=== PATIENT | female | born 1980 | race Two or more races ===

== ENCOUNTER → 2021-11-24 12:52 | Outpatient (BNVA) | payer OTHER, SELFPAY | PROVIDERS: Visit Provider Physician Assistant Surgical | DX: E66.01 Morbid (severe) obesity due to excess calories (principal); Z68.41 Body mass index [BMI] 40.0-44.9, adult | CPT/HCPCS: 99202 ==

== ENCOUNTER → 2021-12-08 08:34 | Outpatient (REF) | payer OTHER, SELFPAY ==
--- NOTE | ~2021-12-08 | XR_ITS ---
EXAMINATION: XR CHEST CLINICAL INFORMATION: Morbid to severe obesity due to excess calories COMPARISON: None TECHNIQUE: 2 views of the chest were obtained. FINDINGS: No significant abnormality is noted involving the heart, lungs, mediastinum, bony thorax or soft tissues. XR/XR chest 2V IMPRESSION: Unremarkable chest examination.
--- NOTE | 2021-12-08 08:59 | ECG_ITS ---
Test Reason : MORBID OBESITY Blood Pressure : / mmHG Vent. Rate : 057 BPM Atrial Rate : 057 BPM P-R Int : 166 ms QRS Dur : 088 ms QT Int : 424 ms P-R-T Axes : 045 044 030 degrees QTc Int : 412 ms Sinus bradycardia Low voltage QRS Borderline ECG No previous ECGs available Referred By: Kaushal Montaño Electronically Signed By:FYAE HERMAN
[2021-12-08 09:00] LABS: MANUAL DIFF FLAG NO
[2021-12-08 09:30] LABS: Basophils Percent Auto 0.6 % (0-2); Eosinophils Absolute Auto 0.1 X10*3/uL (0.0-0.4); Eosinophils Percent Auto 1.8 % (0-4); Hematocrit 36.5 % (37.0-47.0); Hemoglobin 12.3 g/dl (12.0-16.0); Imm Gran Abs Auto 0.01 X10*3/uL (0.00-0.03); Imm Gran Pct Auto 0.2 % (0.0-0.4); Lymphocytes Absolute Auto 2.5 X10*3/uL (1.2-4.9); Lymphocytes Percent Auto 49.2 % (20-40); Mean Corpuscular HGB Conc 33.7 g/dl (31.0-35.0); Mean Corpuscular Hemoglobin 30.5 pg (27.0-33.0); Mean Corpuscular Volume 90.6 fL (80.0-98.0); Mean Platelet Volume 8.9 fL (9.4-12.3); Monocytes Absolute Auto 0.3 X10*3/uL (0.1-1.2); Monocytes Percent Auto 5.9 % (2-11); Neutrophils Absolute Auto 2.2 x10*3/uL (2.0-8.3); Neutrophils Percent Auto 42.3 % (45-73); Platelet Count 233 X10*3/uL (160-400); Red Blood Count 4.03 X10*6/uL (4.20-5.50); White Blood Count 5.1 X10*3/uL (4.8-10.8)
[2021-12-08 10:15] LABS: Alanine Aminotransferase 48 U/L (0-31); Albumin Level 4.2 g/dL (3.5-5.0); Alkaline Phosphatase 67 U/L (39-117); Anion Gap 13 (12-20); Aspartate Amino Transferase 30 U/L (5-31); Bilirubin Total 0.3 mg/dL (0.0-1.0); Blood Urea Nitrogen 15 mg/dL (9-16); C Reactive Protein 0.31 mg/dL (< or = 0.50); Carbon Dioxide 26 mmol/L (22-29); Chloride 103 mmol/L (96-108); Cholesterol 153 mg/dL; Estimated Glomerular Filt Rate > 60; Glucose Random 88 mg/dL (60-115); HDL Cholesterol 49 mg/dL; Iron 84 mcg/dL (30-160); LDL Cholesterol Calculated 84 mg/dl; Percent Iron Saturation 24 % (15-50); Potassium 4.6 mmol/L (3.3-5.1); Sodium 137 mmol/L (135-145); Total Iron Binding Capacity 353 mcg/dL (228-428); Total Protein 7.3 g/dL (6.5-8.0); Triglycerides 102 mg/dL; Unsaturated Iron Binding 269 ug/dL
[2021-12-08 10:43] LABS: Estimated Average Glucose 97 mg/dL
[2021-12-08 10:52] LABS: Ferritin 53 ng/mL (10-250); Vitamin D 25-OH Total 47.2 ng/mL (>30)
[2021-12-08 11:02] LABS: Folate 16.1 ng/mL (> or = 4.0); Vitamin B12 319 pg/mL (200-900)
[2021-12-08 11:23] LABS: Insulin 27 uU/mL (2-29)
[2021-12-09 13:22] LABS: Calcium (PTHI) 9.1 mg/dL (8.6-10.2); PTHI 50 pg/mL (16-77)
[2021-12-09 15:10] LABS: H Pylori Breath Test Negative (Negative)
[2021-12-12 06:06] LABS: Vitamin B1 7 nmol/L (8-30)
[2021-12-13 06:11] LABS: Zinc 83 mcg/dL (60-130)
[2021-12-14 18:58] LABS: Vitamin A 39 mcg/dL (38-98)
== END ==
LOC: HO.CARD 08:34
PROVIDERS: Visit Provider Physician Assistant Surgical
DX: E66.01 Morbid (severe) obesity due to excess calories (principal); R00.1 Bradycardia, unspecified; Z11.0 Encounter for screening for intestinal infectious diseases
CPT/HCPCS: 36415; 71046; 80053; 80061; 82306; 82607; 82728; 82746; 83013; 83036; 83525; 83540; 83970; 84425; 84443; 84590; 84630; 85025; 86140; 93005; 99211

== ENCOUNTER → 2022-08-10 13:27 | Outpatient (BNVA) | payer MEDICAID, SELFPAY | PROVIDERS: PCP Nurse Practitioner Family; Visit Provider Physician Assistant Surgical ==

== ENCOUNTER → 2022-08-17 12:58 | Outpatient (BNVA) | payer MEDICAID, SELFPAY | PROVIDERS: PCP Nurse Practitioner Family; Visit Provider Physician Assistant Surgical | DX: E66.01 Morbid (severe) obesity due to excess calories (principal); K21.9 Gastro-esophageal reflux disease without esophagitis; G47.33 Obstructive sleep apnea (adult) (pediatric); E03.9 Hypothyroidism, unspecified; Z68.41 Body mass index [BMI] 40.0-44.9, adult | CPT/HCPCS: 99212 ==

== ENCOUNTER → 2022-08-24 12:13 | Outpatient (BNVA) | payer MEDICAID, SELFPAY | PROVIDERS: PCP Nurse Practitioner Family; Visit Provider Physician Assistant Surgical ==

== ENCOUNTER 2022-09-11 12:31 | Outpatient (AMB) | payer MEDICAID, SELFPAY ==
--- NOTE | 2022-09-11 13:13 | MHC.AMNUTRGE ---
Intake VS Expanded 09/11/22 13:26 Height 5 ft 6 in Weight 236 lb BMI 38.1 Intake Visit Reasons: (OV) Initial Nutrition [facility] Photo Technologist Required: Yes Photo Technologist Name: Marvin Wilkerson Information Interpreted: non-clinical & clinical Allergies No Known Allergies Allergy (Verified 08/24/22 12:20) HPI Nutrition Presentation Details Was in program in Nov 2021 had one appt and left. She managed to lose 10# on her own before coming back Reason for consult elevated BMI Diet Assmnt Details Pure or Quest Protein shake and uses unsweetened almond milk another shake Zone or Atkins protein bar upper sorbian yogurt [place], salad Exercise: just had hand surgery so has stopped, was afraid to . She plans to continue going back to the gym soon SW online classes: completed , scored 20% on nutrition class 4. Educated pt on nutrition label reading today Dietary counseling reduction Diagnosis Nutrition problem #1 overweight/obesity As related to (etiology) #1 excess energy intake and physical inactivity As evidenced by (sign/symptom) #1 high BMI Monitoring/Goals Nutrition problem monitoring total energy intake, level of knowledge/skill, total PRO intake, total CHO intake and weight Outcome progress progressing Learning/Education Readiness to learn excellent Stages of change action Educational materials provided Yes Most Recent Diabetes Results: Cholesterol 153 mg/dL 12/08/21 HDL Cholesterol 49 mg/dL 12/08/21 Triglycerides 102 mg/dL 12/08/21 Creatinine 0.87 mg/dL (0.5-1.4) 12/08/21 Blood Urea Nitrogen 15 mg/dL (9-16) 12/08/21 Sodium 137 mmol/L (135-145) 12/08/21 Potassium 4.6 mmol/L (3.3-5.1) 12/08/21 Chloride 103 mmol/L (96-108) 12/08/21 Carbon Dioxide 26 mmol/L (22-29) 12/08/21 Calcium 9.0 mg/dL (8.4-10.2) 12/08/21 AST 30 U/L (5-31) 12/08/21 ALT 48 U/L (0-31) H 12/08/21 Total Protein 7.3 g/dL (6.5-8.0) 12/08/21 Albumin 4.2 g/dL (3.5-5.0) 12/08/21 [facility] Surgical History Hx of foot surgery Hx of hysterectomy Family History Mother Hypertension Diabetes Father Hypertension High cholesterol Son No problems noted. Son No problems noted. Social History Alcohol intake: never Patient Tobacco Use Status: Never used Tobacco Assessment & Plan Assessment & Plan (1) Morbid obesity: Code(s): E66.01 - Morbid (severe) obesity due to excess calories Patient Instructions: Pt doing really well so far and has lost 24 pounds. Continue high protein nutrition plan. Will resume exercise when able. Will follow up again in 6 weeks for f/u assessment - 10/18 1pm Coding Level of Care Code Nutr Indiv Intake (03902) Diagnoses Morbid obesity E66.01 Time Spent (min) 45 Comment in office
[2022-09-11 13:26] VITALS: BMI 38.1
== END 2022-09-11 13:45 | disposition home or self-care (01) ==
PROVIDERS: PCP Nurse Practitioner Family; Visit Provider Dietitian, Registered
DX: E66.01 Morbid (severe) obesity due to excess calories (principal)

== ENCOUNTER → 2022-09-11 12:31 | Outpatient (BNVA) | payer MEDICAID, SELFPAY | PROVIDERS: PCP Nurse Practitioner Family; Visit Provider Dietitian, Registered | DX: E66.01 Morbid (severe) obesity due to excess calories (principal); Z68.38 Body mass index [BMI] 38.0-38.9, adult; Z71.3 Dietary counseling and surveillance | CPT/HCPCS: 97802 ==

== ENCOUNTER 2022-09-12 07:56 | Outpatient (REF) | payer MEDICAID, SELFPAY ==
--- NOTE | ~2022-09-12 | US_ITS ---
EXAMINATION: US COMPLETE ABDOMEN WITH LIVER ELASTOGRAPHY CLINICAL INFORMATION: Morbid obesity. COMPARISON: None available. TECHNIQUE: Real-time imaging of the abdominal viscera. Noninvasive ultrasound liver fibrosis assessment is performed using Vikas ElastPQ point quantification shear wave elastography (2D-SWE) with a C5-2 MHz transducer. Multiple elastography samples are obtained. FINDINGS: PANCREAS: Normal. The visualized pancreatic head and body are normal in appearance. The remainder of the pancreas is obscured from visualization by the overlying bowel gas. ABDOMINAL AORTA: The proximal, middle, and distal aortic segments are normal in caliber. INFERIOR VENA CAVA: Visualized portions are normal. LIVER: The liver demonstrates normal contour and generally increased echotexture. No focal lesion or intrahepatic biliary duct dilatation. The right lobe measures 21.7 cm in length. The left lobe measures 12.6 cm in length. Portal flow is towards the liver (hepatopetal). Shear wave liver elastography median stiffness is 1.54 m/s (reference: normal median stiffness is 1.3 m/s or less). IQR/median stiffness to assess sampling precision is 0.12 (reference: good quality data set is IQR/median stiffness of 0.15 or less). GALLBLADDER: Normal. The gallbladder is physiologically distended without evidence of stones, sludge, polyps, wall thickening or pericholecystic fluid. COMMON BILE DUCT: Normal in caliber measuring 0.3 cm in diameter. RIGHT KIDNEY: Normal. No hydronephrosis. No renal calculi or focal parenchymal lesions. The kidney measures 10.7 cm in maximum dimension. LEFT KIDNEY: There is a dromedary configuration. No hydronephrosis. No renal calculi or focal parenchymal lesions. The kidney measures 11.5 cm in maximum dimension. SPLEEN: Normal. The spleen measures 12.6 cm in maximum dimension. FREE FLUID: None. US/US abdomen comp w elastography IMPRESSION: 1. There is generalized increase in hepatic echotexture, consistent with fatty infiltration or hepatocellular disease. Please correlate clinically. No focal hepatic mass or intrahepatic biliary dilatation is seen. 2. Liver elastography: In the absence of other known clinical signs, measurements rule out compensated advanced chronic liver disease. If there are known clinical signs, further testing may be needed for confirmation. REFERENCE: Society of Radiologists in Ultrasound Liver Stiffness Thresholds (2020): LIVER STIFFNESS THRESHOLDS: *Liver Stiffness equal or less than 1.3 m/s: High probability of being normal. *Liver Stiffness less than 1.7 m/s: In the absence of other known clinical signs, rules out compensated advanced chronic liver disease. *Liver Stiffness 1.7-2.1 m/s: Suggestive of compensated advanced chronic liver disease but need further test for confirmation. *Liver Stiffness over 2.1 m/s: Rules in compensated advanced chronic liver disease. *Liver Stiffness over 2.4 m/s: Suggestive of clinically significant portal hypertension. QUALITY OF DATA SET: *IQR/Median value equal or less than 0.15 implies a quality data set. *IQR/Median value over 0.15 implies a poor quality data set. SIGNIFICANT CHANGE FROM PRIOR EXAM: Significant change if liver stiffness measurement is 10% or greater from prior exam. OTHER CONSIDERATIONS: The stage of liver fibrosis may be overestimated in the setting of acute hepatitis, liver inflammation, elevated liver function tests, hepatic vascular congestion, obstructive cholestasis, non-fasting state, and infiltrative diseases such as amyloidosis and lymphoma. In some patients with NAFLD, the liver stiffness thresholds for compensated advanced chronic liver disease may be lower. In causes other than viral hepatitis and NAFLD, liver stiffness thresholds are not well established.
== END 2022-09-12 07:57 | disposition home or self-care (01) ==
LOC: HO.US 07:56
PROVIDERS: PCP Nurse Practitioner Family; Visit Provider Physician Assistant Surgical
DX: E66.01 Morbid (severe) obesity due to excess calories (principal)
CPT/HCPCS: 76705; 76981

== ENCOUNTER → 2022-09-18 08:03 | Outpatient (BNVA) | payer MEDICAID, SELFPAY | PROVIDERS: PCP Nurse Practitioner Family; Visit Provider Counselor Mental Health ==

== ENCOUNTER 2022-10-12 08:36 | Outpatient (AMB) | payer OTHER, SELFPAY ==
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
== END 2022-10-12 10:33 | disposition home or self-care (01) ==
PROVIDERS: PCP Nurse Practitioner Family; Visit Provider Counselor Mental Health
DX: F43.29 Adjustment disorder with other symptoms (principal)
CPT/HCPCS: 90837

== ENCOUNTER → 2022-10-12 08:36 | Outpatient (BNVA) | payer MEDICAID, SELFPAY | PROVIDERS: PCP Nurse Practitioner Family; Visit Provider Counselor Mental Health ==

== ENCOUNTER → 2022-10-30 13:57 | Outpatient (BNVA) | payer MEDICAID, SELFPAY | PROVIDERS: PCP Nurse Practitioner Family; Visit Provider Dietitian, Registered | DX: E66.9 Obesity, unspecified (principal); Z68.39 Body mass index [BMI] 39.0-39.9, adult; Z71.3 Dietary counseling and surveillance | CPT/HCPCS: 97803 ==

== ENCOUNTER 2022-11-21 09:16 | Outpatient (AMB) | payer MEDICAID, SELFPAY ==
--- NOTE | 2022-11-21 09:20 | A.OFFVIS_ITS ---
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 They were last seen in the office on 10/30/2022, recorded weight at that time was 242 pounds, with a BMI of 39.1.? Today's weight is 267.2 pounds and BMI is 43.1.? There has been a weight loss of 3.6 pounds since initiating the surgical weight loss program in 11/2021 with a total body weight loss of 1.33 %. Pre op work up completed as follows: SWL classes:? 10/10 BH appts: cleared 10/30? ?? RD appts: cleared 10/12 Labs: not done H. pylori: not done CXR: 12/08/2021 unremarkable exam EK12/08/2021, sinus rosalba ABD U/S: 09/12, fatty infiltration UGI: not done The patient reports difficulty following the meal plan after her hand surgery; difficult to prepare food with one hand. Was able to have yogurt. Did not have family support; her mother was bringing her food off plan. Was also not exercising. Now back to work. Current meal plan includes: Pure or Quest protein shake - 1 scoop in 8oz unsweetened almond milk each at 7am-9am and 2pm-4pm Zone Perfect or Atkins protein bar at 10:30am-12:30pm and 8pm-10pm, or can have one Syriac yogurt Dinner at 6pm - 6 forks / 3 oz of protein and 6 forks / 3 oz of salad/vegetables. Current exercise plan includes: has been having R leg cramps, limiting her mobility likes to go to the gym, wants to restart more consistently PFSH Surgical History (Updated 11/21/22 @ 09:24 by COLUMBA Lorenzana) Carpal tunnel syndrome Hx of hysterectomy Hx of foot surgery Family History (Reviewed 11/21/22 @ : by COLUMBA Lorenzana) Mother Hypertension Diabetes Father Hypertension High cholesterol Son No problems noted. Son No problems noted. Social History (Reviewed 11/21/22 @ : by COLUMBA Lorenzana) Alcohol intake: never Patient Tobacco Use Status: Never used Tobacco Physical Exam Vital Signs: Last Vital Signs Temp 97.7 F 11/21/22 09:25 Pulse 78 11/21/22 09:25 Resp 16 11/21/22 09:25 BP 139/65 11/21/22 09:25 Pulse Ox 97 11/21/22 09:25 Oxygen Delivery Method Room Air 11/21/22 09:25 BMI result Body Mass Index 43.1 Assessment & Plan Assessment & Plan (1) Morbid obesity: Code(s): E66.01 - Morbid (severe) obesity due to excess calories (2) HTN (hypertension): Code(s): I10 - Essential (primary) hypertension (3) GERD (gastroesophageal reflux disease): Code(s): K21.9 - Gastro-esophageal reflux disease without esophagitis (4) Hypothyroid: Code(s): E03.9 - Hypothyroidism, unspecified (5) NATHAN (obstructive sleep apnea): Code(s): G47.33 - Obstructive sleep apnea (adult) (pediatric) Plan Pt's home scale is varying greatly from our scale here so she will try to come for weight checks. We reviewed different products about which she had questions and I gave her guidelines on choosing high protein snacks. She showed me a photo of one of her meals to ensure appropriate portion sizes. We discussed Quest protein chips as an option but I advised her to use these sparingly and to focus mostly on the meal plan with bars/shakes. Encouraged ongoing exercise, with increasing activity as able. Needs updated labs, EKG, H pylori, needs to reschedule UGI. RTC 1 month. Texted meal plan reminder to pt and encouraged her to reach out between appts with any questions. Patient is morbidly obese and is not considered stable at this time. I spent a total of 45 minutes reviewing/updating records, examining the patient and counseling the patient on weight management as detailed above. Orders: Orders Insulin Today E66.01 - Morbid (severe) obesity due to excess calories Lipid Panel Today E66.01 - Morbid (severe) obesity due to excess calories Complete Blood Count Auto Diff Today E66.01 - Morbid (severe) obesity due to excess calories Vitamin B12 and Folate Today E66.01 - Morbid (severe) obesity due to excess calories Vitamin A Today E66.01 - Morbid (severe) obesity due to excess calories C Reactive Protein Today E66.01 - Morbid (severe) obesity due to excess calories Ferritin Today E66.01 - Morbid (severe) obesity due to excess calories TSH reflex Free T4 Today E66.01 - Morbid (severe) obesity due to excess calories IRON PROFILE Today E66.01 - Morbid (severe) obesity due to excess calories Zinc Today E66.01 - Morbid (severe) obesity due to excess calories Comprehensive Met. Panel Today E66.01 - Morbid (severe) obesity due to excess calories Vitamin B1 Today E66.01 - Morbid (severe) obesity due to excess calories PTHI Today E66.01 - Morbid (severe) obesity due to excess calories H Pylori Breath Test Today E66.01 - Morbid (severe) obesity due to excess calories Vitamin D 25-OH Total Today E66.01 - Morbid (severe) obesity due to excess calories Hemoglobin A1c Today E66.01 - Morbid (severe) obesity due to excess calories ECG 12 lead EKG Today E66.01 - Morbid (severe) obesity due to excess calories Coding Level of Care Code Est Pt Level 5 (41553) Diagnoses Morbid obesity E66.01 HTN (hypertension) I10 GERD (gastroesophageal reflux disease) K21.9 Hypothyroid E03.9 NATHAN (obstructive sleep apnea) G47.33
[2022-11-21 09:25] VITALS: BP 139/65; PULSE 78; RESP 16; TEMP 36.5; O2SAT 97; BMI 43.1
== END 2022-11-21 10:39 | disposition home or self-care (01) ==
PROVIDERS: PCP Nurse Practitioner Family; Visit Provider Physician Assistant Surgical
DX: E66.01 Morbid (severe) obesity due to excess calories (principal); Z68.41 Body mass index [BMI] 40.0-44.9, adult; K21.9 Gastro-esophageal reflux disease without esophagitis; E03.9 Hypothyroidism, unspecified
CPT/HCPCS: 99215

== ENCOUNTER → 2022-11-21 09:16 | Outpatient (BNVA) | payer MEDICAID, SELFPAY | PROVIDERS: PCP Nurse Practitioner Family; Visit Provider Physician Assistant Surgical | DX: E66.01 Morbid (severe) obesity due to excess calories (principal); K21.9 Gastro-esophageal reflux disease without esophagitis; I10 Essential (primary) hypertension; E03.9 Hypothyroidism, unspecified; G47.33 Obstructive sleep apnea (adult) (pediatric); Z68.41 Body mass index [BMI] 40.0-44.9, adult | CPT/HCPCS: 99212 ==

== ENCOUNTER 2024-01-02 10:21 | Emergency (ER) | payer OTHER, SELFPAY ==
--- NOTE | ~2024-01-02 | XR_ITS ---
EXAMINATION: XR CHEST CLINICAL INFORMATION: Pneumonia evaluation COMPARISON: December 2021. TECHNIQUE: Frontal view of the chest was obtained. Rotation to the right. FINDINGS: No airspace consolidation or pneumothorax seen. Hilar regions and pulmonary vascularity unremarkable. Pleural surfaces appear clear. XR/XR chest 1V IMPRESSION: No evidence for acute process. Electronically signed by: Olegario Berger MD 01/02/2024 01:41 PM EDT
--- NOTE | 2024-01-02 10:55 | ECG_ITS ---
Test Reason : chest pain Blood Pressure : / mmHG Vent. Rate : 057 BPM Atrial Rate : 057 BPM P-R Int : 140 ms QRS Dur : 088 ms QT Int : 422 ms P-R-T Axes : 044 035 011 degrees QTc Int : 410 ms Sinus bradycardia with Premature atrial complexes Cannot rule out Anterior infarct , age undetermined Abnormal ECG When compared to the previous EKG of 08 dec 2021, PAC present Referred By: Luh Cody Electronically Signed By:NU ALVARADO
[2024-01-02 11:21] VITALS: BP 125/46; PULSE 55; RESP 16; TEMP 37; O2SAT 100; BMI 40.1
--- NOTE | 2024-01-02 11:27 | ED_ITS ---
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 No nausea/vomiting. No preceding illness. No recent travel/procedures/OCP use. She notes not related to exertion. Started at rest. Has no prior hx of CAD or VTE. This has been happening on and off since Sunday at times she feels her heart racing MD complaint: chest pain Onset (ago): day(s) (2) Location: chest Radiation: non-radiation Severity: mild Quality: dull Pain Consistency: intermittent Relieving factors: none Exacerbating factors: none Associated symptoms: shortness of breath Treatments prior to arrival: none Related Data Home Medications ?Medication ?Instructions ?Recorded ?Confirmed furosemide 20 mg tablet mg PO 10/25/21 11/21/22 gabapentin 300 mg capsule 300 mg PO QPM pain 10/25/21 11/21/22 levothyroxine 25 mcg tablet 25 mcg PO DAILY 10/25/21 11/21/22 losartan 100 mg tablet 100 mg PO DAILY 10/25/21 11/21/22 pantoprazole 40 mg tablet,delayed 40 mg PO BID 10/25/21 11/21/22 release Previous Rx's ?Medication ?Instructions ?Recorded cyanocobalamin (vitamin B-12) 1,000 mcg sublingual DAILY #30 tabs 03/09/22 1,000 mcg sublingual tablet inulin 2 gram chewable tablet 2 g PO DAILY #90 tabs 08/17/22 (Fiber Gummies) cyclobenzaprine 10 mg tablet 10 mg PO TID PRN muscle spasm #14 01/02/24 tabs Allergies Allergy/AdvReac Type Severity Reaction Status Date / Time No Known Allergies Allergy Verified 01/02/24 11:29 Review of Systems 2 Review of Systems: Constitutional : No Weight loss, No Fever, No Chills ENT/Mouth : No sore throat, No Rhinorrhea Eyes: No Eye Pain, No Swelling Cardiovascular : pos Chest Pain, pos SOB, no Dyspnea on Exertion, No Orthopnea, No Edema, pos Palpitations Respiratory : No Cough, No Sputum Gastrointestinal :no Nausea, No Vomiting, No Diarrhea, No abdominal Pain, No Hematochezia, No Melena Genitourinary : No Dysuria, No Urinary Frequency Musculoskeletal : No joint pain, No Myalgias, No Joint Swelling Skin : No Skin Lesions, No rash Neuro : No Weakness, No Numbness, No Dizziness, No Headache All other systems reviewed and are negative [facility] Past Medical History Attestation statement: The following information was validated with the patient. Source: old records reviewed Medical History Morbid obesity HTN (hypertension) Hypothyroid GERD (gastroesophageal reflux disease) NATHAN (obstructive sleep apnea) Surgical History Carpal tunnel syndrome Hx of hysterectomy Hx of foot surgery Family History Family History Mother Hypertension Diabetes Father Hypertension High cholesterol Son No problems noted. Son No problems noted. Social History Social History Alcohol intake: never Patient Tobacco Use Status: Never used Tobacco Smoked in Last 30 Days: No Use of substances other than those prescribed or required for medical reasons: No Advance Directives: No Do you have a plan to hurt others: No Plan Patient : No Physical Exam ED Vital Signs: Vital Signs - 24 hr 01/02/24 11:21 01/02/24 12:41 01/02/24 13:59 Temperature 98.6 F 97.9 F 98 F Pulse Rate 55 52 76 Respiratory Rate 16 16 18 Blood Pressure 125/46 L 108/60 111/72 Pulse Oximetry 100 98 98 Oxygen Delivery Method Room Air Room Air BMI result Body Mass Index 40.1 Appearance: Alert. Oriented X3. No acute distress. Eyes: Pupils equal, round and reactive to light. ENT: Pharynx normal. Neck: Normal inspection. Neck supple. CVS: Normal heart rate and rhythm. Pulses normal. Respiratory: No respiratory distress. Breath sounds normal. Abdomen: Soft and nontender. Skin: Skin warm and dry. Normal skin color. Normal skin turgor. Extremities: No lower extremity edema. No calf ttp Neuro: Oriented X 3. No motor deficit. No sensory deficit. Course Course Course Narrative: RME: 43-year-old female with history of GERD and hypertension presents to ED for intermittent chest pressure since Sunday with episodes of tachycardia/palpitations. Patient did not check her heart rate. Patient denies any leg swelling, pitting edema, recent long travel, recent surgery. Physical exam negative for any lower extremity swelling, pitting edema, calf pain. Heart sounds lung sounds normal. Labs chest x-ray EKG SARs ordered Medical Decision Making Medical Decision Making [facility] Narrative: 43 yo female with PMH of NATHAN, hypothyroidism, GERD, HTN here with c/o atypical chest pain with no known prior CAD and no hx of VTE at this time will need basic labs, trop x 1, ddimer CXR and TSH. She has normal EKG here and normal HR. She denies infectious symptoms. Overall not toxic, distal pulses intact doubt dissection Differential Diagnosis Differential Diagnoses: The differential diagnosis associated with the presentation includes chest pain, anemia, viral syndrome, atypical chest pain Admission/Observation Consideration of admission/observation: Escalation of care including admission/observation considered CXR negative, trop flat, ddimer negative nonischemic EKG Lab Data [facility] Lab Attestation statement: I reviewed the patient's lab results. 01/02/24 11:48 01/02/24 11:48 Labs: Lab Results 01/02/24 01/02/24 Range/Units 11:47 11:48 WBC 5.7 (4.8-10.8) X10*3/uL RBC 4.06 L (4.20-5.50) X10*6/uL Hgb 12.6 (12.0-16.0) g/dl Hct 37.3 (37.0-47.0) % MCV 91.9 (80.0-98.0) fL MCH 31.0 (27.0-33.0) pg MCHC 33.8 (31.0-35.0) g/dl RDW 12.6 (11.0-16.0) % Plt Count 243 (160-400) X10*3/uL MPV 8.7 L (9.4-12.3) fL Immature Gran % (Auto) 0.2 (0.0-0.4) % Neut % (Auto) 47.5 (45-73) % Lymph % (Auto) 45.0 H (20-40) % [place] % (Auto) 5.3 (2-11) % Eos % (Auto) 1.6 (0-4) % Baso % (Auto) 0.4 (0-2) % Lymph # (Auto) 2.6 (1.2-4.9) X10*3/uL [place] # (Auto) 0.3 (0.1-1.2) X10*3/uL Eos # (Auto) 0.1 (0.0-0.4) X10*3/uL Baso # (Auto) 0.0 (0.0-0.2) X10*3/uL Abs Immat Gran (auto) 0.01 (0.00-0.03) X10*3/uL Absolute Neuts (auto) 2.7 (2.0-8.3) x10*3/uL Absolute Nucleated RBC 0.000 (0.0-0.012) X10*3/uL Nucleated RBC % (auto) 0.0 (0.0-0.2) /100WBC PT 11.8 (10.9-12.4) SEC INR 1.0 (0.9-1.1) APTT 31.5 (26.0-36.8) SEC D-Dimer High Sensitivty 153 NG/ML Sodium 137 (135-145) mmol/L Potassium 3.8 (3.3-5.1) mmol/L Chloride 104 (96-108) mmol/L Carbon Dioxide 24 (22-29) mmol/L Anion Gap 13 (12-20) BUN 11 (9-16) mg/dL Creatinine 0.88 (0.5-1.4) mg/dL Estim Creat Clear Calc 106.0 Estimated GFR > 60 Random Glucose 102 (60-115) mg/dL Calcium 9.5 (8.4-10.2) mg/dL Total Bilirubin 0.3 (0.0-1.0) mg/dL AST 25 (5-31) U/L ALT 27 (0-31) U/L Alkaline Phosphatase 55 (39-117) U/L Troponin I High Sens < 2.7 (<3.5-17.0) ng/L B-Natriuretic Peptide 10 (<100) pg/mL Total Protein 8.2 H (6.5-8.0) g/dL Albumin 4.3 (3.5-5.0) g/dL TSH 0.59 (0.32-4.0) uIU/mL Influenza Type A (PCR) NEGATIVE (Negative) Influenza Type B (PCR) NEGATIVE (Negative) RSV RNA Qual (PCR) NEGATIVE (Negative) SARS-CoV-2 RNA (RT-PCR) NEGATIVE (Negative) Independent Interpretation I performed an independent interpretation of an: EKG and Plain X-Ray (normal ) Interpretation: Rate: 57 Rhythm: sinus bradycardia Windfall: normal Normal P waves. Normal SALOME. Normal QRS complex. ST T wave : inverted t waves V1 and III, no MALCOM qTC: 410 prior studies: no acute ischemia The study has been interpreted contemporaneously by me. . Radiology Impression Discussion of test interpretation with radiology: I have reviewed the radiologist's reading. External Record Review External record reviewed: Outpatient record Discharge Plan Discharge Clinical Impression: Atypical chest pain Patient Disposition: Home, Self-Care Instructions: Chest Pain (ED) Additional Instructions: normal labs, chest xray normal negative blood clot test thyroid study normal please follow up with your doctor todays' studies are reassuring return for any worsening symptoms or concerns. Prescriptions: New cyclobenzaprine 10 mg tablet 10 mg PO TID PRN (Reason: muscle spasm) Qty: 14 0RF No Action cyanocobalamin (vitamin B-12) 1,000 mcg tablet, sublingual 1,000 mcg sublingual DAILY Qty: 30 2RF losartan 100 mg tablet 100 mg PO DAILY levothyroxine 25 mcg tablet 25 mcg PO DAILY gabapentin 300 mg capsule 300 mg PO QPM pantoprazole 40 mg tablet,delayed release (DR/EC) 40 mg PO BID furosemide 20 mg tablet PO Fiber Gummies 2 gram tablet,chewable 2 g PO DAILY Qty: 90 3RF Stand Alone Forms: Work/School Release Interventions: ED Discharge Assessment Last Done: 01/02/24 13:59 Discharge Date/Time: 01/02/24 14:00 Print Language: Wolof
[2024-01-02 12:00] LABS: MANUAL DIFF FLAG NO
[2024-01-02 12:04] LABS: Basophils Percent Auto 0.4 % (0-2); Eosinophils Absolute Auto 0.1 X10*3/uL (0.0-0.4); Eosinophils Percent Auto 1.6 % (0-4); Hematocrit 37.3 % (37.0-47.0); Hemoglobin 12.6 g/dl (12.0-16.0); Imm Gran Abs Auto 0.01 X10*3/uL (0.00-0.03); Imm Gran Pct Auto 0.2 % (0.0-0.4); Lymphocytes Absolute Auto 2.6 X10*3/uL (1.2-4.9); Mean Corpuscular HGB Conc 33.8 g/dl (31.0-35.0); Mean Corpuscular Volume 91.9 fL (80.0-98.0); Mean Platelet Volume 8.7 fL (9.4-12.3); Monocytes Absolute Auto 0.3 X10*3/uL (0.1-1.2); Monocytes Percent Auto 5.3 % (2-11); Neutrophils Absolute Auto 2.7 x10*3/uL (2.0-8.3); Neutrophils Percent Auto 47.5 % (45-73); Platelet Count 243 X10*3/uL (160-400); Red Blood Count 4.06 X10*6/uL (4.20-5.50); Red Cell Distribution Width 12.6 % (11.0-16.0); White Blood Count 5.7 X10*3/uL (4.8-10.8)
--- NOTE | 2024-01-02 12:17 | PC.NURSE ---
a&ox4. vss and up to date. nsr on the environmental monitoring technician. pt presents to the ED c/o increased sob/dizziness x sunday. pt also reports intermittent episodes of dizziness that worsens w/ movement/exertion. pt reports waking up sunday morning where she noticed she had nonradidating substernal chest pain that felt like tachycardia. pt reports she was unable to detect if she was actually tachycardic or not d/t not having proper equipment at home. at this time - sinus tachy on the environmental monitoring technician. pt reports 1 episode of nausea but denies any episodes of vomiting/diarrhea/fever/chills. 20gIV placed in the left AC - labs obtained/sent to lab. ekg performed in triage. pt presents in no respiratory distress. no sob/wob noted. respirations even/unlabored. pt waiting for chest xray to be completed. plan of care ongoing. call groves placed within reach.
[2024-01-02 12:18] LABS: Prothrombin Time 11.8 SEC (10.9-12.4)
[2024-01-02 12:20] LABS: Alanine Aminotransferase 27 U/L (0-31); Albumin Level 4.3 g/dL (3.5-5.0); Alkaline Phosphatase 55 U/L (39-117); Anion Gap 13 (12-20); Aspartate Amino Transferase 25 U/L (5-31); Bilirubin Total 0.3 mg/dL (0.0-1.0); Blood Urea Nitrogen 11 mg/dL (9-16); Calcium 9.5 mg/dL (8.4-10.2); Carbon Dioxide 24 mmol/L (22-29); Chloride 104 mmol/L (96-108); Estimated Glomerular Filt Rate > 60; Glucose Random 102 mg/dL (60-115); Potassium 3.8 mmol/L (3.3-5.1); Sodium 137 mmol/L (135-145); Total Protein 8.2 g/dL (6.5-8.0)
[2024-01-02 12:21] LABS: Partial Thromboplastin Time 31.5 SEC (26.0-36.8)
[2024-01-02 12:25] LABS: B Type Natriuretic Peptide 10 pg/mL (<100)
[2024-01-02 12:33] LABS: Troponin-I High Sensitivity < 2.7 ng/L (<3.5-17.0)
[2024-01-02 12:41] VITALS: BP 108/60; PULSE 52; RESP 16; TEMP 36.6; O2SAT 98
[2024-01-02 12:51] LABS: Influenza A PCR NEGATIVE (Negative); Influenza B PCR NEGATIVE (Negative); Resp Syncy Virus RNA Qual PCR NEGATIVE (Negative); SARS COV2 PCR INHOUSE NEGATIVE (Negative)
[2024-01-02 12:54] LABS: D Dimer High Sensitivity 153 NG/ML
[2024-01-02 13:07] LABS: TSH reflex Free T4 0.59 uIU/mL (0.32-4.0)
[2024-01-02 13:59] VITALS: BP 111/72; PULSE 76; RESP 18; TEMP 36.6; O2SAT 98
== END 2024-01-02 14:00 | disposition home or self-care (01) ==
PROVIDERS: Physician Assistant; Emergency Provider Emergency Medicine
DX: R07.9 Chest pain, unspecified (principal); I10 Essential (primary) hypertension; E03.9 Hypothyroidism, unspecified; K21.9 Gastro-esophageal reflux disease without esophagitis; Z79.899 Other long term (current) drug therapy; Z03.818 Encounter for observation for suspected exposure to other biological agents ruled out
CPT/HCPCS: 0241U; 71045; 80053; 83880; 84443; 84484; 85025; 85379; 85610; 85730; 93005; 99283; 99285

== ENCOUNTER → 2024-01-02 10:55 | Outpatient (BNV) | payer OTHER, SELFPAY | PROVIDERS: Emergency Provider Emergency Medicine; Visit Provider Internal Medicine | DX: R94.31 Abnormal electrocardiogram [ECG] [EKG] (principal) | CPT/HCPCS: 93010 ==

== ENCOUNTER 2024-03-18 18:44 | Emergency (ER) | payer SELFPAY ==
[2024-03-18 18:55] VITALS: BP 142/61; PULSE 71; RESP 20; TEMP 36; O2SAT 99; BMI 40.3
--- NOTE | 2024-03-19 | ED.BACK ---
HPI - Back Pain/Injury General Chief Complaint: Back Pain/Injury Stated Complaint: Back & hip pain/no inj Time Seen by Provider: 03/18/24 23:58 Source: patient Mode of arrival: ambulatory Limitations: no limitations History of Present Illness ED Provider: Dr. Manoj Montoya HPI Narrative: 43-year-old female with no significant past medical history who presents emergency department for evaluation right lower back pain x3 weeks with pain radiating to her right hip. The patient does not recount any injury. She states that she has had a gradual onset of pain in her mid right lower back with pain radiating to her right hip and down the posterior aspect of her leg to the knee. She states the pain is severe and greater than 10 out 10. She describes the pain is a pulling/ stabbing pain which is worse with movement. She denied any numbness, weakness, loss of bowel or bladder control. Patient states that she took tramadol, Tylenol and Flexeril with no relief of her pain. She denied fever, chills, nausea, vomiting, diarrhea. She denies injection drug use. Related Data Home Medications ?Medication ?Instructions ?Recorded ?Confirmed furosemide 20 mg tablet mg PO 10/25/21 11/21/22 gabapentin 300 mg capsule 300 mg PO QPM pain 10/25/21 11/21/22 levothyroxine 25 mcg tablet 25 mcg PO DAILY 10/25/21 11/21/22 losartan 100 mg tablet 100 mg PO DAILY 10/25/21 11/21/22 pantoprazole 40 mg tablet,delayed 40 mg PO BID 10/25/21 11/21/22 release Previous Rx's ?Medication ?Instructions ?Recorded cyanocobalamin (vitamin B-12) 1,000 mcg sublingual DAILY #30 tabs 03/09/22 1,000 mcg sublingual tablet inulin 2 gram chewable tablet 2 g PO DAILY #90 tabs 08/17/22 (Fiber Gummies) cyclobenzaprine 10 mg tablet 10 mg PO TID PRN muscle spasm #14 01/02/24 tabs cyclobenzaprine 10 mg tablet 10 mg PO TID PRN muscle pain or 03/19/24 spasm #20 tabs morphine 15 mg immediate release 15 mg PO Q8H PRN pain #10 tabs 03/19/24 tablet prednisone 10 mg tablet 10 mg PO DIRECTED #60 tabs 03/19/24 Allergies Allergy/AdvReac Type Severity Reaction Status Date / Time No Known Allergies Allergy Verified 03/18/24 18:57 Review of Systems Review of Systems: Yes all other systems are reviewed and are negative [facility] Past Medical History Medical History Morbid obesity HTN (hypertension) Hypothyroid GERD (gastroesophageal reflux disease) NATHAN (obstructive sleep apnea) Surgical History Carpal tunnel syndrome Hx of hysterectomy Hx of foot surgery Family History Family History Mother Hypertension Diabetes Father Hypertension High cholesterol Son No problems noted. Son No problems noted. Social History Social History Alcohol intake: never Patient Tobacco Use Status: Never used Tobacco Advance Directives: No Advance Directives Information Provided: Yes Physical Exam Vital Signs: Vital Signs: Last Vital Signs Temp 97.9 F 03/19/24 00:52 Pulse 81 03/19/24 00:52 Resp 16 03/19/24 00:52 BP 140/71 H 03/19/24 00:52 Pulse Ox 100 03/19/24 00:52 O2 Del Method Room Air 03/19/24 00:52 BMI result Body Mass Index 40.3 vital signs revealed an elevated blood pressure of 140/71 Exam: General: Awake, alert in no distress Head: Normocephalic, atraumatic EENT: PERRL, Lids normal, sclera normal, conjunctiva normal, nose normal , ears normal, throat without erythema or exudates Neck: Supple, no adenopathy Lung: breath sounds symmetric, no wheezing, rales or rhonchi Chest: symmetric movement, nontender Heart: regular rate and rhythm, normal S1, S2 no murmurs or rubs Abdomen: soft, non-tender, nondistended, normal bowel sounds Back: no vertebral tenderness, patient does have tenderness palpation of her right paraspinal muscles in the lumbar sacral area, she has a positive right straight leg raise and positive left straight leg raise. Extremities: no deformities, moves all extremities symmetrically Neuro: Awake, alert, oriented, normal speech, cranial nerves intact, moves all extremities symmetrically Psych: Pleasant, cooperative Medications Administered Discontinued Medications Generic Name Dose Route Start Last Admin Trade Name Tomi PRN Reason Stop Dose Admin Morphine Sulfate 15 mg 03/19/24 00:38 03/19/24 00:46 Morphine Sulfate Immed Release 15 Mg Tablet PO 03/19/24 00:39 15 mg ONCE ONE Administration Prednisone 60 mg 03/19/24 00:37 03/19/24 00:46 Prednisone 20 Mg Tablet PO 03/19/24 00:38 60 mg ONCE ONE Administration Medical Decision Making Medical Decision Making MDM Narrative: 43-year-old female with no significant past medical history who presents emergency department for evaluation right lower back pain x3 weeks with pain radiating to her right hip and posterior thigh.The pain is greater than 10/10 and not relieved by Tylenol, tramadol and Flexeril. She denied numbness, weakness, loss of bowel or bladder control. visit admission revealed tenderness palpation of the right paraspinal muscles lumbar sacral area and positive bilateral straight leg raise. Differential diagnosis: Includes but is not limited to Lumbar musculoskeletal strain, lumbar sprain, sciatica Course: the patient's presentation and physical exam findings are consistent with right sciatica. Patient was started on prednisone 60 mg once a day for 5 days and then decrease by 10 mg every 2 days until complete the prescription. Patient was prescribed Flexeril 10 mg 1 pill every 6-8 hours as needed for spasm. She was also advised to continue taking Tylenol and for pain not relieved by these medications she was prescribed morphine 15 mg 1 pill every 6 hours as needed for pain. She was given printed and verbal instructions and discharged home. Admission/Observation Consideration of admission/observation: Escalation of care including admission/observation considered (no) Prescription Management I considered prescription management with: Pain Medication and Other ( Anti spasmodic: Flexeril. Anti-inflammatory steroid: Prednisone) Discharge Plan Discharge Clinical Impression: Sciatica, Strain of lumbar region Patient Disposition: Home, Self-Care Instructions: Sciatica (ED) Additional Instructions: Your symptoms and exam are consistent with sciatica of your right lower back with the pain going to your right buttocks and hip area. Take prednisone 10 mg pills, 6 pills for 5 days and every 2 days decrease by 1 pill tell you finish the prescription. While you ?are taking prednisone, do not take any NSAIDs (Motrin, Advil, ibuprofen, Aleve, naproxen). Take Flexeril (cyclobenzaprine) 10 mg pills, 1 pill every 6-8 hours as needed for pain or spasm. ?This medication will make you sleepy. ?Do not drive or work while taking this medication. Take Tylenol (acetaminophen) 2 pills every 6 hours as needed for pain. For pain not relieved by Prednisone, Flexeril or Tylenol take morphine 15 mg pills, 1 pill every 6 hours as needed for pain. This medication will make you sleepy, do not drive or work while taking this medication. Morphine is a narcotic medication and can be addicting. If you are concerned about addiction you can ask the pharmacist for less pills or do not get this prescription filled. Follow-up with your doctor in 2 days. Please return to the emergency department if your symptoms get worse or if you develop any symptoms that are concerning to you. Prescriptions: New cyclobenzaprine 10 mg tablet 10 mg PO TID PRN (Reason: muscle pain or spasm) Qty: 20 0RF prednisone 10 mg tablet 10 mg PO DIRECTED Qty: 60 0RF Rx Instructions: Day 1 through 5 take 6 pills then decrease by 1 pill every 2 days until you complete prescription morphine 15 mg tablet 15 mg PO Q8H PRN (Reason: pain) Qty: 10 0RF Rx Instructions: Partial Fill upon patient request. No Action cyanocobalamin (vitamin B-12) 1,000 mcg tablet, sublingual 1,000 mcg sublingual DAILY Qty: 30 2RF cyclobenzaprine 10 mg tablet 10 mg PO TID PRN (Reason: muscle spasm) Qty: 14 0RF losartan 100 mg tablet 100 mg PO DAILY levothyroxine 25 mcg tablet 25 mcg PO DAILY gabapentin 300 mg capsule 300 mg PO QPM pantoprazole 40 mg tablet,delayed release (DR/EC) 40 mg PO BID furosemide 20 mg tablet PO Fiber Gummies 2 gram tablet,chewable 2 g PO DAILY Qty: 90 3RF Stand Alone Forms: Work/School Release Interventions: ED Discharge Assessment Last Done: 03/19/24 00:52 Discharge Date/Time: 03/19/24 00:53 Print Language: Khmer
[2024-03-19 00:40] VITALS: BP 140/71; PULSE 81; RESP 16; TEMP 36.6; O2SAT 100
[2024-03-19] MEDS: Morphine Sulfate Immed Release 15 MG TABLET PO (00:46)
[2024-03-19] MEDS: predniSONE 20 MG TABLET 60 MG PO (00:46)
[2024-03-19 00:52] VITALS: BP 140/71; PULSE 81; RESP 16; TEMP 36.6; O2SAT 100
== END 2024-03-19 00:53 | disposition home or self-care (01) ==
PROVIDERS: Emergency Provider Emergency Medicine Emergency Medical Services; PCP Nurse Practitioner Family
DX: M54.41 Lumbago with sciatica, right side (principal); Z79.899 Other long term (current) drug therapy
CPT/HCPCS: 99283